=== PATIENT | female | born 1960 | race Caucasian/White ===

== ENCOUNTER → 2018-08-23 | Day surgery (SDC) | payer BC ==
--- NOTE | 2018-08-23 11:58 | RAD REPORT ---
EXAM DESCRIPTION: US - Breast Aspiration Inital - 08/23/2018 9:59 am CLINICAL HISTORY: Left breast mass COMPARISON: August 11, 2018 ultrasound TECHNIQUE: Risks, benefits and alternatives to the procedure explained to the patient and informed c onsent obtained. Skin and subcutaneous tissues anesthetized with lidocaine. Under sonographic guidance, an 18 gauge ne edle was placed into the 1.8 centimeter irregularly-shaped cystic mass. Approximately 4 to 5 cc brownish fluid removed and sent to the lab. The cystic mass collapsed after t he aspiration. Fluid was given to pathology. No immediate complication IMPRESSION: Fine-needle aspiration of the 1.8 centimeter complex cystic mass within the 2 o'clock po sition left breast
== END ==
LOC: DS 08:37
PROVIDERS: ATTEND Specialist
DX: R92.8 Other abnormal and inconclusive findings on diagnostic imaging of breast (principal)
CPT/HCPCS: 19000; 88108; 88161; 88305

== ENCOUNTER 2024-12-31 08:19 | Emergency (ER) | payer BC, OTHER ==
[2024-12-31] MEDS ORDERED: NA CHLORIDE 0.9% 1,000 ML ONE (09:04)
[2024-12-31] MEDS ORDERED: ONDANSETRON 4 MG/2 ML VIAL ONE (09:10)
[2024-12-31] MEDS ORDERED: AMPICILLIN/SULBACTAM 3GM/VIAL ONE (09:11)
[2024-12-31] MEDS ORDERED: NA CHLORIDE 0.9% 100 ML ONE (09:11)
[2024-12-31] MEDS ORDERED: FENTANYL CITR 100 MCG/2 ML ONE (09:32)
[2024-12-31 09:48] LABS: Absolute Lymphocytes (CBC) 1.8 K/uL (0.7-4.9); Hematocrit 42.6 % (36.0-45.0); Hemoglobin 14.0 g/dL (12.0-15.0); MCH 30.8 pg (27.0-35.0); MCHC 33.0 g/dL (32.0-36.0); MCV 93.3 fL (80-100); MPV 9.2 fL (7.6-11.3); Nucleated RBC Absolute Count 0.0 (0-0); Nucleated Red Blood Cells % 0.1 % (0-0); RBC Red Blood Cell Count 4.56 M/uL (3.86-4.86); White Blood Count 10.70 thou/uL (4.3-10.9)
[2024-12-31 10:00] LABS: Anion Gap 7.1 mEq/L (5.0-15.0); BUN Blood Urea Nitrogen 14.0 mg/dL (7-18); Glucose Level 103.0 mg/dL (74-106)
[2024-12-31 10:05] LABS: Potassium 4.1 mEq/L (3.5-5.1)
--- NOTE | 2024-12-31 10:15 | ER ---
Nurse's Notes [facility] Name: Kasandra Linder Age: 64 yrs Sex: Female : 1960 Arrival Date: 12/31/2024 Time: 08:19 Bed 4 Private MD: Diagnosis: Dental caries, unspecified-dental swelling / cellulitis Presentation: 12/31 08:40 Chief complaint: Patient states: right sided facial swelling since Wednesday , had dental iw work done on , had a crown placed for implant , pain is 12/22. Coronavirus screen: At this time, the client does not indicate any symptoms associated with coronavirus-19. Ebola Screen: No symptoms or risks identified at this time. Initial Sepsis Screen: Does the patient meet any 2 criteria? No. Patient's initial sepsis screen is negative. Does the patient have a suspected source of infection? No. Patient's initial sepsis screen is negative. Risk Assessment: Do you want to hurt yourself or someone else? Patient reports no desire to harm self or others. Onset of symptoms was December 29, 2024. 08:40 Method Of Arrival: Ambulatory iw 08:40 Acuity: RONEN 3 iw Historical: - Allergies: 08:42 No Known Allergies; iw - PMHx: 08:42 Hypertensive disorder; Hypothyroidism; bowel blockage; iw - PSHx: 08:42 hysterectomy; Tonsillectomy; bone spurs; bowel resection; iw - Immunization history:: Adult Immunizations not up to date. - Infectious Disease History:: Denies. - Social history:: Smoking status: Patient denies any tobacco usage or history of. Screenin:10 [facility] ED Fall Risk Assessment (Adult) History of falling in the last 3 months, jb4 including since admission No falls in past 3 months (0 pts) Confusion or Disorientation No (0 pts) Intoxicated or Sedated No (0 pts) Impaired Gait No (0 pts) Mobility Assist Device Used No (0 pt) Altered Elimination No (0 pt) Score/Fall Risk Level 0 - 2 = Low Risk Oriented to surroundings, Maintained a safe environment. Abuse screen: Denies threats or abuse. Nutritional screening: No deficits noted. Tuberculosis screening: No symptoms or risk factors identified. Assessment: 09:10 General: Appears in no apparent distress. uncomfortable, Behavior is calm, cooperative, jb4 appropriate for age. Pain: Complains of pain in right jaw Pain does not radiate. Pain currently is 10 out of 10 on a pain scale. Neuro: Level of Consciousness is awake, alert, obeys commands, Oriented to person, place, time, situation. Cardiovascular: Patient's skin is warm and dry. Respiratory: Airway is patent Respiratory effort is even, unlabored, Respiratory pattern is regular, symmetrical. Derm: Skin is intact, Skin is pink, warm \T\ dry. Musculoskeletal: Circulation, motion, and sensation intact. Range of motion: intact in all extremities. 09:40 Reassessment: Patient is alert, oriented x 3, equal unlabored respirations, skin aa5 warm/dry/pink. Patient states feeling better. Pt given ice pack and warm blankets. . 10:23 Reassessment: Patient appears in no apparent distress at this time. Patient and/or jb4 family updated on plan of care and expected duration. Pain level reassessed. Patient is alert, oriented x 3, equal unlabored respirations, skin warm/dry/pink. Vital Signs: 08:40 BP 154 / 91; Pulse 67; Resp 16; Pulse Ox 99% on R/A; Weight 83.91 kg; Height 5 ft. 5 iw in. ; Pain 10/10; 10:23 BP 142 / 97; Pulse 71; Resp 16; Pulse Ox 98% on R/A; jb4 08:40 Body Mass Index 30.79 (83.91 kg, 165.1 cm) iw 08:40 Pain Scale: Adult iw ED Course: 08:23 Patient arrived in ED. cj3 08:24 Dmitry Wynne FNP-C is PHCP. dr5 08:24 Randell Sanchez MD is Attending Physician. dr5 08:34 Nancy Irvin, JESSICA is Primary Nurse. kb4 08:42 Triage completed. iw 08:44 Arm band placed on. iw 09:10 Patient has correct armband on for positive identification. Bed in low position. Call jb4 light in reach. Side rails up X 1. Provided Education on: plan of care. 09:13 Inserted saline lock: 20 gauge in right antecubital area, using aseptic technique. jb4 Blood collected. 09:15 CBC with Diff Sent. jb4 09:16 BMP Sent. jb4 09:17 Primary Nurse role handed off by Nancy Irvin RN jb4 09:17 Theo Landrum, RN is Primary Nurse. jb4 09:27 intact, bleeding controlled, Pressure dressing applied, Flushed 20G to R AC and aa5 swelling was noted, IV was dc'd. 09:30 Inserted saline lock: 22 gauge in right antecubital area, using aseptic technique. aa5 Flushed with 10 mL NS. 10:23 No provider procedures requiring assistance completed. IV discontinued, intact, jb4 bleeding controlled, No redness/swelling at site. Pressure dressing applied. Administered Medications: 09:14 Not Given (Hospital doesn't have any ): morphineor iv 4 mg IVP once over 4 mins dr5 09:30 Drug: Ondansetron IVP 4 mg IVP once; over 2 minutes Route: IVP; Site: right antecubital;aa5 09:35 Follow up: Response: No adverse reaction aa5 09:30 Drug: NS 0.9% IV 1000 ml IV at 1 bolus Per protocol; to be given as a bolus over 60 aa5 minutes Route: IV; Rate: 1 bolus; Site: right antecubital; 09:32 Drug: Ampicillin-Sulbactam Sodium IVPB 3 grams IVPB once over 30 mins; (mix in 100 mL aa5 NS) Route: IVPB; Infused Over: 30 mins; Site: right antecubital; 09:35 Drug: fentaNYL (PF) IVP 50 mcg IVP once Route: IVP; Site: right antecubital; aa5 09:40 Follow up: Response: No adverse reaction; Pain is decreased aa5 Medication: 09:10 VIS not applicable for this client. jb4 Outcome: 10:15 Discharge ordered by . tiara 10:23 Discharged to home ambulatory, with family, jb4 10:23 Condition: stable 10:23 Discharge instructions given to patient, Instructed on discharge instructions, follow up and referral plans. no drinking with medication, no driving heavy equipment, medication usage, Demonstrated understanding of instructions, follow-up care, medications, Prescriptions given X 3, 10:24 Patient left the ED. jb4 Signatures: Afia Murphy RN RN Maddy Sanchez RN RN aa5 Theo Landrum, JESSICA LOPEZ jb4 Dmitry Wynne, INTERVENTIONAL NURSE-C INTERVENTIONAL NURSE-Cdr5 Nancy Irvin RN RN kb4 Magdaleno, Candice cj3
--- NOTE | 2024-12-31 10:15 | EDPHYS ---
Physician Documentation [facility] Name: Kasandra Linder Age: 64 yrs Sex: Female : 1960 Arrival Date: 12/31/2024 Time: 08:19 Bed 4 Private MD: ED Physician Randell Sanchez HPI: 12/31 09:03 This 64 yrs old Female presents to ER via Ambulatory with complaints of dr5 Facial Swelling, Face Pain. 09:03 Onset: The symptoms/episode began/occurred 2 day(s) ago. Patient is a 64 year old dr5 female with history of HTN, Hypothyroidism coming in with right sided facial swelling and pain that's been going on for two days. Patient reports he went to the dose on Wednesday and had crown placed on bottom right tooth. Patient states that she had all amoxicillin leftover and took 1 yesterday. Patient denies taking any other medications. Patient denies difficulty swallowing, difficulty handling secretions, or difficulty speaking. Historical: - Allergies: 08:42 No Known Allergies; iw - PMHx: 08:42 Hypertensive disorder; Hypothyroidism; bowel blockage; iw - PSHx: 08:42 hysterectomy; Tonsillectomy; bone spurs; bowel resection; iw - Immunization history:: Adult Immunizations not up to date. - Infectious Disease History:: Denies. - Social history:: Smoking status: Patient denies any tobacco usage or history of. ROS: 09:03 Constitutional: as per hpi dr5 Exam: 09:03 Constitutional: This is a well developed, well nourished patient who is awake, alert, dr5 and in no acute distress. Head/Face: Normocephalic, atraumatic. Eyes: Pupils equal round and reactive to light, extra-ocular motions intact. Lids and lashes normal. Conjunctiva and sclera are non-icteric and not injected. Cornea within normal limits. Periorbital areas with no swelling, redness, or edema. Chest/axilla: Normal chest wall appearance and motion. Nontender with no deformity. No lesions are appreciated. Cardiovascular: Regular rate and rhythm with a normal S1 and S2. Normal PMI, no JVD. No pulse deficits. Respiratory: Lungs have equal breath sounds bilaterally, clear to auscultation. No rales, rhonchi or wheezes noted. No increased work of breathing, no retractions or nasal flaring. Back: No spinal tenderness. No costovertebral tenderness. Full range of motion. MS/ Extremity: Pulses equal, no cyanosis. Neurovascular intact. Full, normal range of motion. Neuro: Awake and alert, GCS 15, oriented to person, place, time, and situation. Cranial nerves II-XII grossly intact. Motor strength 5/5 in all extremities. Sensory grossly intact. Cerebellar exam normal. Normal gait. 09:03 ENT: External ear(s): are unremarkable, Ear canal(s): are normal, TM's: are normal, no acute changes, Nose: is normal, Mouth: drooling, is not appreciated, Trismus absent, Posterior pharynx: is normal, no acute changes, Airway: Dental exam: cellulitis, that is mild, specifically in the lower right second bicuspid (#29) and lower right first molar (#30), 09:03 Skin: cellulitis, that is mild, on the right jaw, Vital Signs: 08:40 BP 154 / 91; Pulse 67; Resp 16; Pulse Ox 99% on R/A; Weight 83.91 kg; Height 5 ft. 5 iw in. ; Pain 10/10; 10:23 BP 142 / 97; Pulse 71; Resp 16; Pulse Ox 98% on R/A; jb4 08:40 Body Mass Index 30.79 (83.91 kg, 165.1 cm) iw 08:40 Pain Scale: Adult iw MDM: 08:24 Medical Screening Exam initiated dr5 10:47 Differential diagnosis: viral Infection, bacterial infection, URI, Cellulitis, Dental dr5 Caries, Dental Abscess. Data reviewed: vital signs, nurses notes, lab test result(s), CBC, white blood cell count, hemoglobin, hematocrit, platelets, electrolytes, sodium, potassium, chloride, serum bicarbonate, BUN, creatinine, serum glucose. Consideration of Admission/Observation Escalation of care including admission/observation considered. Escalation considered patient found to have trismus or difficulty handling secretions. I considered the following discharge prescriptions or medication management in the emergency department I discussed and recommended Over The Counter medications, Medications were administered in the Emergency Department. See MAR. Test considered but Not performed: CT: CT scan considered but patient does not have fever, significant swelling, trismus. Historians other than the Patient: Spouse/Significant Other: Spouse. Care significantly affected by the following chronic conditions: Hypertension, Thyroid disease. Care significantly affected by the following Social Determinants of Health: Poor access to healthcare and/or lack of insurance, Poor access to transportation, Problems related to employment. Counseling: I had a detailed discussion with the patient and/or guardian regarding the historical points, exam findings, and any diagnostic results supporting the discharge/admit diagnosis, the presence of at least one elevated blood pressure reading (>120/80) during this emergency department visit, lab results, the need for outpatient follow up, for definitive care, a dentist, to return to the emergency department if symptoms worsen or persist or if there are any questions or concerns that arise at home. Medication response: Unasyn, fentanyl, normal saline, Zofran. Response to treatment: the patient's symptoms have resolved after treatment, the patient is now symptom free. Special discussion: I discussed with the patient/guardian in detail that at this point there is no indication for admission to the hospital. It is understood, however, that if the symptoms persist or worsen the patient needs to return immediately for re-evaluation. Based on the history and exam findings, there is no indication for further emergent testing or inpatient evaluation. I discussed with the patient/guardian the need to see a dentist for further evaluation of the symptoms. ED course: Patient states that she will follow-up with her dentist tomorrow. Will start patient on antibiotics and give pain medication as needed. All question answered. Strict ER precautions were given to patient for developing fever or worsening swelling.. 12/31 08:54 Order name: CBC with Diff; Complete Time: 09:52 dr5 12/31 08:54 Order name: BMP; Complete Time: 10:13 dr5 12/31 08:54 Order name: IV Saline Lock; Complete Time: 09:15 dr5 12/31 08:54 Order name: Labs collected and sent; Complete Time: :15 dr5 Administered Medications: 09:14 Not Given (Hospital doesn't have any ): morphineor iv 4 mg IVP once over 4 mins dr5 09:30 Drug: Ondansetron IVP 4 mg IVP once; over 2 minutes Route: IVP; Site: right antecubital;aa5 09:35 Follow up: Response: No adverse reaction aa5 09:30 Drug: NS 0.9% IV 1000 ml IV at 1 bolus Per protocol; to be given as a bolus over 60 aa5 minutes Route: IV; Rate: 1 bolus; Site: right antecubital; 09:32 Drug: Ampicillin-Sulbactam Sodium IVPB 3 grams IVPB once over 30 mins; (mix in 100 mL aa5 NS) Route: IVPB; Infused Over: 30 mins; Site: right antecubital; 09:35 Drug: fentaNYL (PF) IVP 50 mcg IVP once Route: IVP; Site: right antecubital; aa5 09:40 Follow up: Response: No adverse reaction; Pain is decreased aa5 Disposition Summary: 12/31/24 10:15 Discharge Ordered Notes: Location: Home dr5 Condition: Stable dr5 Diagnosis - Dental caries, unspecified - dental swelling / cellulitis dr5 Followup: dr5 - With: Emergency Department - When: As needed - Reason: Worsening of condition Followup: dr5 - With: Private Physician - When: 1 - 2 days - Reason: Recheck today's complaints, Continuance of care, Re-evaluation by your physician Discharge Instructions: - Discharge Summary Sheet dr5 - Dental Pain dr5 Forms: - Medication Reconciliation Form dr5 - Antibiotic Education dr5 - Prescription Opioid Use dr5 - Patient Portal Instructions dr5 - Leadership Thank You Letter dr5 Prescriptions: - Augmentin 875-125 mg Oral Tablet - take 1 tablet ORAL route every 12 hours for 10 days; 20 tablet; Refills: 0, dr5 Product Selection Permitted - Ibuprofen 800 mg Oral Tablet - take 1 tablet ORAL route every 12 hours As needed take with food; 20 tablet; dr5 Refills: 0, Product Selection Permitted - Tramadol 50 mg Oral Tablet - take 1 tablet ORAL route every 8 hours as needed; 12 tablet; Refills: 0, dr5 Product Selection Permitted Signatures: Dispatcher [employer] Afia Heller RN RN iw Calderon, Audri, RN RN aa5 Dmitry Wynne, [facility]-C [facility]-Cdr5
[2024-12-31 14:08] VITALS: BP 142/97; O2SAT 98
== END 2024-12-31 10:24 | disposition home or self-care (01) ==
LOC: ER 08:19
DX: K02.9 Dental caries, unspecified (principal); K12.2 Cellulitis and abscess of mouth
CPT/HCPCS: 85025; 80048; 36415; 96375; 96374; 99284; J3010; J0295; J2405; J7030